=== PATIENT | male | born 1975 | race Caucasian/White ===

== ENCOUNTER 2016-11-18 16:30 | Emergency (ER) | payer OTHER ==
--- NOTE | ~2016-11-18 | CR142 ---
[facility]. [facility] A Service of [facility] RADIOLOGY TEXT RESULTS PATIENT: GUERO MASON LOCATION: SED : 77 UNIT #: [id number] AGE: [address]: DIANA OROSCO SEX: M ORDER DR: [id number] [place] [id number] E MR#: [id number] Acc #: [id number] NAME: GUERO MASON : 1975 SEX: M STUDY DATE/TIME: 11/18/2016 17:35 UNIT: SED ROOM: STUDY DESCRIPTION: CR Hand Min 3 Views Rt Attending Physician: Diana Orosco Aprn Ordering Physician: Diana Orosco Aprn Primary Care Physician: No Primary Care Physician MEDICAL IMAGING REPORT This report is preliminary unless electronic signature is present. EXAM Right hand series, dated 11/18/2016. COMPARISON None. HISTORY Laceration between the first and second digits of the right hand today. Cut on steel. FINDINGS Three views of the right hand were obtained. No acute displaced fracture or dislocation. There is chronic bony deformity noted in the neck and adjacent head of the fifth metacarpal, likely relating to old healed fracture with callus. Dictated by... Nicolas Dean M.D. THIS IS AN ELECTRONICALLY VERIFIED REPORT Nicolas Dean M.D. at 11/19/2016 1:16 PM CPR/jt TD: 11/18/2016 21:13 JOB #: [id number] MEDICAL IMAGING REPORT Page 1 of 1
[~2016-11-18 16:30] MED LIST: AMOXICILLIN500 M1 PO; FLEXERIL PO; NO MEDICATIONS; ULTRAM PO; VICODIN 5/500 T1 TAB PO
== END 2016-11-18 19:36 | disposition home or self-care (01) ==
LOC: SED 16:30
DX: S61.011A Laceration without foreign body of right thumb without damage to nail, initial encounter (principal); F17.210 Nicotine dependence, cigarettes, uncomplicated; W45.8XXA Other foreign body or object entering through skin, initial encounter; Y92.009 Unspecified place in unspecified non-institutional (private) residence as the place of occurrence of the external cause
CPT/HCPCS: 12001; 73130; 99283

== ENCOUNTER 2017-01-19 17:57 | Emergency (ER) | payer OTHER ==
--- NOTE | ~2017-01-19 | CR230 ---
[facility]. [facility] A Service of [facility] RADIOLOGY TEXT RESULTS PATIENT: GUERO MASON LOCATION: SED : [birth year] UNIT #: [id number] AGE: [address]: DIANA OROSCO SEX: M ORDER DR: [id number] [place] [id number] E MR#: [id number] Acc #: [id number] NAME: GUERO MASON : 1975 SEX: M STUDY DATE/TIME: 01/19/2017 18:39 UNIT: SED ROOM: STUDY DESCRIPTION: CR Shoulder Min 2 View Rt Attending Physician: Diana Orosco Aprn Ordering Physician: Diana Orosco Aprn Primary Care Physician: Primary Care Physician No MEDICAL IMAGING REPORT This report is preliminary unless electronic signature is present. EXAM Right shoulder 3 views HISTORY Right shoulder pain for 5 years. No injury. FINDINGS AP view with internal and external rotation of the shoulder girdle shows satisfactory relationship of the humeral head and glenoid fossa. The joint space is normal. There is no identifiable fracture or dislocation or bony destructive process about the shoulder girdle anatomy. The acromioclavicular joint is normal. There is no radiopaque foreign body in the region. IMPRESSION Normal right shoulder. Dictated by... Curt Aparicio M.D. THIS IS AN ELECTRONICALLY VERIFIED REPORT Curt Aparicio M.D. at 01/20/2017 11:45 PM KRISTIN/hammad TD: 01/20/2017 09:50 JOB #: [id number] MEDICAL IMAGING REPORT Page 1 of 1
== END 2017-01-19 19:57 | disposition home or self-care (01) ==
LOC: SED 17:57
DX: S46.011A Strain of muscle(s) and tendon(s) of the rotator cuff of right shoulder, initial encounter (principal); F17.200 Nicotine dependence, unspecified, uncomplicated; X58.XXXA Exposure to other specified factors, initial encounter
CPT/HCPCS: 73030; 99283